=== PATIENT | female | born 1955 | race Caucasian/White ===

== ENCOUNTER 2021-03-11 08:47 | Outpatient (REF) | payer OTHER, SELFPAY ==
--- NOTE | 2021-03-11 13:42 | MHC.AU.AHA ---
Adult Audiological Evaluation Date of Visit: 03/11/21 Reason for Appointment: Patient suspects there has been a change in her hearing She has been asking for repetition more frequently and often feels that her ears sound blocked. History of frequent ear infections in childhood and surgery on her left ear over 20 years ago. Her hearing aids were recently lost after taking off her face mask. Previous Hearing Test Results: [facility] on 09[facility]20[facility]2019- Normal/borderline from 250-2000 Hz, steeply sloping to severe mixed hearing loss. Ear History: Recent Ear Infections: None Reported Ear Infections in Childhood: Both Ears History of Ear Wax Buildup: None Reported Previous Ear Surgery: Left Ear Bothersome Tinnitus/Ringing/Noises in Ears: Both Ears Ear used on the phone: Right Ear Blocked/Full Sensation in Ear(s): Both Ears History of occupational noise exposure?: No History: No Medical History: Medical History: History of Brain Aneurysm, Lyme Disease, Thyroid Disease, Arthritis, Migraines Hearing Instrument History- Right Ear: Automation Machine Builder: Phonak Model: [employer] Startup Machine M70-R Serial Number: [id number] Battery Size: Rechargeable Repair Warranty: 12/30/2022 Loss and Damage Warranty: 12/30/2022 Dispensed By: [facility] [place] Date of Fittin10/23/2019 Hearing Instrument History- Left Ear: Automation Machine Builder: Phonak Model: RedSeguroeo M70-R Serial Number: [id number] Battery Size: Rechargeable Warranty: 12/30/2022 Loss and Damage Warranty: 12/30/2022 Dispensed By: [facility] [place] Date of Fittin10/23/2019 Otoscopy: Right Ear: Cloudy tympanic membrane Left Ear: Cloudy tympanic membrane- scarring noted Tympanometry: Tympanometry performed due to: History of middle ear dysfunction Right Ear: Normal Middle Ear System (Type A) Left Ear: Reduced Middle Ear Compliance (Type As) Hearing Evaluation: Transducer(s) Used: Insert Earphones Method: Conventional Audiometry Stimuli Used: Pure Tones Right Ear: Description of Hearing: Mild/borderline to severe/profound hearing loss, mostly sensorineural with one mixed threshold at 4000 Hz Left Ear: Description of Hearing: Mild/borderline to severe/profound hearing loss, mostly sensorineural with one mixed threshold at 4000 Hz Speech Recognition Threshold (SRT): Method Used: Recorded Lists Stimuli Used: Spondee Words Right Ear: 25 dBHL Left Ear: 30 dBHL Word Discrimination: Method: Recorded Lists Word Lists Used: W-22 Right Ear: 92% at 70 dBHL Left Ear: 92% at 80 dBHL Most Comfortable Level (MCL): Right Ear: 70 dBHL Left Ear: 80 dBHL Comparison: Compared to the most recent evaluation: Thresholds have decreased bilaterally. Recommendations: Audiological re-evaluation in one year. Patient's hearing aids are still under the loss and damage warranty. The loss and damage form was signed by the patient and e-mailed to [employer]. She will be contacted when the replacements have arrived. As patient's hearing has changed, the programming will need to be updated on the replacement instruments. Diagnosis: Primary Diagnosis: H90.3 Bilateral Sensorineural Hearing Loss Signature: Provider: Peggy Campos, CCC-A
== END 2021-03-11 08:48 | disposition home or self-care (01) ==
LOC: HO.SH 08:47
PROVIDERS: Visit Provider Internal Medicine
DX: Z01.118 Encounter for examination of ears and hearing with other abnormal findings (principal); H90.3 Sensorineural hearing loss, bilateral
CPT/HCPCS: 92557; 92567

== ENCOUNTER 2021-03-24 08:23 | Outpatient (REF) | payer OTHER, SELFPAY ==
--- NOTE | 2021-03-24 09:06 | MHC.AU.HFU ---
Hearing Instrument Follow-Up- Binaural Date of Visit: 03/24/21 Right Ear: Sales And Marketing Manager: Phonak Model: Audeo M70-R Serial Number: Current: [id number], (Original: ) Repair Warranty: 12/30/2022 Loss and Damage Warranty: Used on 03/16/2021 Battery Size: Rechargeable Type of Dome: Medium Vented Type of Wax Guard: CeruShield Dispensed By: [facility] Date of Fittin10/23/2019 Left Ear: Sales And Marketing Manager: Phonak Model: Audeo M70-R Serial Number: Current: [id number], (Original: [id number]) Repair Warranty: 12/30/2022 Loss and Damage Warranty: Used on 03/16/2021 Battery Size: Rechargeable Type of Dome: Medium Vented Type of Wax Guard: CeruShield Dispensed By: [facility] Date of Fittin10/23/2019 Follow-Up Summary: Patient arrived to picking tech her loss and damage replacement instruments. She reports she has also lost the event designer. She was given a replacement from stock- will request a replacement for our stock from [employer]. When [employer] returned the hearing aids, the right and left serial numbers were swapped. In the software, told it to Allow Change of Sides to reflect this difference. Hearing aid programming was updated with most recent audiogram. Domes were changed to Medium Vented due to feedback. Acoustic settings changed and feedback business support manager re-run. Patient was pleased with how the hearing aids sounded and felt. She recently get a new phone. Paired the hearing aids to her phone and kwame. Recommendations: Recommendations: Hearing instrument follow-up or maintenance as needed. Diagnosis Code(s): Primary Diagnosis: H90.3 Bilateral Sensorineural Hearing Loss Signature: Provider: Peggy Campos, MARQUISE-A
== END 2021-03-24 08:24 | disposition home or self-care (01) ==
LOC: HO.HAP 08:23
PROVIDERS: Visit Provider Internal Medicine
DX: Z13.89 Encounter for screening for other disorder (principal)

== ENCOUNTER 2021-05-07 09:59 | Outpatient (REF) | payer SELFPAY | END 2021-05-07 10:00 | disposition home or self-care (01) | LOC: HO.HAP 09:59 | PROVIDERS: Visit Provider Internal Medicine | DX: Z13.89 Encounter for screening for other disorder (principal) ==